=== PATIENT | female | born 1985 | race African-American/Black ===

== ENCOUNTER 2023-09-24 09:03 | Day surgery (SDC) | payer OTHER ==
[2023-09-24] MEDS ORDERED: Ferumoxytol (NON ERSD) 510 MG in Sodium Chloride 0.9% 250 ML 150 ML IVPB SCH (09:30)
[2023-09-24] MEDS ORDERED: Acetaminophen 500 MG TAB PO SCH ×2 (09:30→09:45)
[2023-09-24] MEDS ORDERED: Acetaminophen 500 MG TAB ONE ×2 (09:43→09:49)
[2023-09-24] MEDS ORDERED: Iron Sucrose Complex 500 MG in Sodium Chloride 0.9% 250 ML 250 ML IVPB SCH (10:15)
== END 2023-09-24 14:40 | disposition home or self-care (01) ==
LOC: CSHSDC 09:03
PROVIDERS: ATTEND Student in an Organized Health Care Education/Training Program
DX: O99.019 Anemia complicating pregnancy, unspecified trimester (principal); Z3A.00 Weeks of gestation of pregnancy not specified
CPT/HCPCS: J1756; J7050; Q0138

== ENCOUNTER 2023-12-17 16:57 | Day surgery (SDC) | payer BC, OTHER ==
[2023-12-17] MEDS ORDERED: hydrALAZINE 20 MG/ML VIAL SLOW IVP PRN (17:02)
== END 2023-12-17 19:19 | disposition home or self-care (01) ==
LOC: CSHLD/OP 16:57
PROVIDERS: ATTEND Family Medicine
DX: O36.8330 Maternal care for abnormalities of the fetal heart rate or rhythm, third trimester, not applicable or unspecified (principal); O47.1 False labor at or after 37 completed weeks of gestation; O99.013 Anemia complicating pregnancy, third trimester; O34.211 Maternal care for low transverse scar from previous cesarean delivery; Z3A.37 37 weeks gestation of pregnancy; Z90.49 Acquired absence of other specified parts of digestive tract; Z79.899 Other long term (current) drug therapy
CPT/HCPCS: 76819

== ENCOUNTER 2023-12-26 11:44 | Inpatient (IN) | payer BC, OTHER ==
[2023-12-25 16:12] LABS: Hematocrit 39.2 % (34.9-44.5); Hemoglobin 12.9 g/dL (12.0-15.5); Mean Corpuscular HGB CONC 32.9 g/dL (32.0-36.0); Mean Corpuscular Volume 69.8 fL (81.6-98.3); Platelet Count 236 10x3/uL (150-450); RBC Distribution Width 18.6 % (11.5-14.5); Red Blood Cell (RBC) Count 5.62 10x6/uL (3.90-5.03); White Blood Cell (WBC) Count 7.7 10x3/uL (3.5-10.5)
[2023-12-25 16:44] LABS: HBsAg Index 0.27 S/CO (0-0.99); HIV (1/2) Antibody/Antigen Non-Reactive (NonReactive); HIV 1/2 INDEX 0.14 S/CO (<1.00); Hep B Surf Ag Non-Reactive S/CO (NonReactive)
[2023-12-26 11:20] LABS: Syphilis Antibody Nonreactive (Nonreactive); Syphilis Antibody Index 0.02 S/CO (<1.00 Non-Reactive)
[~2023-12-26 11:44] MED LIST: Bicitra 30 ML UDCUP PO PRN; Carboprost 250 MCG/ML AMP IM PRN; Diphenoxylate HCl/Atropine Tablet PO PRN; Famotidine/PF 20 mg/2ml Vial SLOW IVP PRN; Methylergonovine 0.2 MG/ML VIAL IM PRN; Misoprostol 200 MCG TAB PR PRN; Ondansetron PF 4 MG/2 ML Vial IVP PRN; Promethazine HCl 25 MG/ML VIAL IM PRN; Tranexamic Acid 1,000 MG/10 ML VIAL IVP PRN; hydrALAZINE 20 MG/ML VIAL SLOW IVP PRN
[2023-12-26] MEDS ORDERED: CEFAZOLIN 2 GM in Sodium Chloride 0.9% 100 ML IVPB SCH (11:45)
[2023-12-26] MEDS ORDERED: Oxytocin 30 units/NS 500 ML 500 ML IV SCH ×2 (11:45→13:00)
[2023-12-26] MEDS ORDERED: Lactated Ringer's 1,000 ML IV SCH (11:45)
[2023-12-26 11:57] VITALS: BMI 35.4
[2023-12-26] MEDS ORDERED: Promethazine HCl 25 MG/ML VIAL IM PRN ×2 (12:50→13:33)
[2023-12-26] MEDS ORDERED: Ondansetron PF 4 MG/2 ML Vial IVP PRN ×3 (12:50→13:33)
[2023-12-26] MEDS ORDERED: Methylergonovine 0.2 MG/ML VIAL IM PRN (12:50)
[2023-12-26] MEDS ORDERED: Misoprostol 200 MCG TAB PR PRN (12:50)
[2023-12-26] MEDS ORDERED: Simethicone Chewable 80 MG TAB PO PRN (12:50)
[2023-12-26] MEDS ORDERED: hydrALAZINE 20 MG/ML VIAL SLOW IVP PRN (12:50)
[2023-12-26] MEDS ORDERED: Naloxone HCl 0.4 mg/ml Vial IVP PRN (13:33)
[2023-12-26] MEDS ORDERED: Naloxone HCl 0.4 mg/ml Vial IV PRN (13:33)
[2023-12-26] MEDS ORDERED: Meperidine HCl/PF 25 MG (1 mL) VIAL SLOW IVP PRN (13:33)
[2023-12-26] MEDS ORDERED: fentaNYL 50 mcg/mL 1 mL Vial SLOW IVP PRN (13:33)
[2023-12-26] MEDS ORDERED: Ketorolac Tromethamine 30 MG (1 mL) VIAL IVP SCH (13:45)
[2023-12-26] MEDS ORDERED: Communication Order-Pharmacy FS SCH (13:45)
[2023-12-26] MEDS: Naloxone HCl 0.4 mg/ml Vial IVP PRN (16:00)
[2023-12-26] MEDS: Moisturizing Cream (Eucerin) 113 GM JAR TOP PRN (16:01)
[2023-12-26] MEDS: diphenhydrAMINE 50 MG/ML VIAL IVP PRN (16:01)
[2023-12-26] MEDS: Ketorolac Tromethamine 30 MG (1 mL) VIAL IVP PRN (18:01)
[2023-12-26] MEDS: Docusate 100 MG CAP PO SCH (21:00)
[2023-12-27] MEDS: Ferrous Sulfate 325 MG TAB PO SCH (01:11)
[2023-12-27 04:26] LABS: Hematocrit 32.2 % (34.9-44.5); Hemoglobin 10.3 g/dL (12.0-15.5); Mean Corpuscular Hemoglobin 22.5 pg (27.0-33.0); Mean Corpuscular Volume 70.5 fL (81.6-98.3); Platelet Count 206 10x3/uL (150-450); RBC Distribution Width 18.1 % (11.5-14.5); Red Blood Cell (RBC) Count 4.57 10x6/uL (3.90-5.03); White Blood Cell (WBC) Count 12.4 10x3/uL (3.5-10.5)
[2023-12-27] MEDS: HYDROcodone/Acetaminophen 5/325 mg Tablet PO PRN ×2 (08:00→12:44)
[2023-12-27] MEDS: Prenatal Vitamin 1 TAB PO SCH (08:00)
[2023-12-27] MEDS: Boostrix 0.5 ML (Tdap) VIAL (>/=7 yrs of age) IM ONE (08:56)
[2023-12-27] MEDS: Ibuprofen 800 MG TAB PO SCH (14:22)
[2023-12-28 08:49] VITALS: BP 118/71; TEMP 97.6
[2023-12-28] MEDS: Senokot S 8.6-50 MG TAB PO SCH (09:16)
[2023-12-28] MEDS: Polyethylene Glycol 3350 17 GM Packet PO SCH (09:16)
== END 2023-12-28 13:40 | disposition home or self-care (01) | DRG 788 ==
LOC: CSHLD 11:44 → CSHPP 16:07
PROVIDERS: ADMIT Family Medicine; ATTEND Family Medicine
PROC: 10D00Z1 Extraction of Products of Conception, Low, Open Approach (ICD-10-PCS; principal; 2023-12-26)
DX: O34.211 Maternal care for low transverse scar from previous cesarean delivery (principal); O99.02 Anemia complicating childbirth; Z3A.39 39 weeks gestation of pregnancy; Z37.0 Single live birth; O34.13 Maternal care for benign tumor of corpus uteri, third trimester; D25.9 Leiomyoma of uterus, unspecified; O99.214 Obesity complicating childbirth; E66.9 Obesity, unspecified; D64.9 Anemia, unspecified
CPT/HCPCS: 36415; 85027; 86780; 86850; 86900; 86901; 87340; 87389; J1200; J1885; J2310